=== PATIENT | male | born 1970 | race Caucasian/White ===

== ENCOUNTER 2018-09-07 20:41 | Emergency (ER) | payer OTHER ==
[2018-09-07] MEDS: LIDOCAINE 1% (MPF) 5 ML VIAL INJ (22:15)
== END 2018-09-08 01:50 | disposition home or self-care (01) ==
LOC: FTE 09-08 01:50
DX: S61.224A Laceration with foreign body of right ring finger without damage to nail, initial encounter (principal); E11.9 Type 2 diabetes mellitus without complications; W26.0XXA Contact with knife, initial encounter; Y92.89 Other specified places as the place of occurrence of the external cause
CPT/HCPCS: 12002; 73140; 99283-25

== ENCOUNTER 2018-09-10 12:05 | Emergency (ER) | payer SELFPAY | END 2018-09-10 12:47 | disposition home or self-care (01) | LOC: FTE 12:05 | DX: S61.214D Laceration without foreign body of right ring finger without damage to nail, subsequent encounter (principal); X58.XXXD Exposure to other specified factors, subsequent encounter | CPT/HCPCS: 99281 ==

== ENCOUNTER 2018-09-13 13:50 | Emergency (ER) | payer SELFPAY | END 2018-09-13 16:20 | disposition home or self-care (01) | LOC: FTE 13:50 | DX: Z48.01 Encounter for change or removal of surgical wound dressing (principal); E11.9 Type 2 diabetes mellitus without complications; Z87.891 Personal history of nicotine dependence | CPT/HCPCS: 99282 ==

== ENCOUNTER 2018-09-16 15:25 | Emergency (ER) | payer SELFPAY, OTHER | END 2018-09-16 18:30 | disposition home or self-care (01) | LOC: FTE 18:30 | DX: Z48.02 Encounter for removal of sutures (principal); E11.9 Type 2 diabetes mellitus without complications; Z87.891 Personal history of nicotine dependence | CPT/HCPCS: 99281 ==